=== PATIENT | female | born 1940 | race Caucasian/White ===

== ENCOUNTER 2016-04-30 18:24 | Observation (INO) | payer MEDICARE, OTHER ==
[~2016-04-30] VITALS: Ht 162.6 cm; Wt 90.9 kg
[~2016-04-30 18:24] MED LIST: ACID1TAB2 PO; AMIO200T PO; CETI10CA PO; CHOL5000 PO; DABI150C PO; ENAL10TA PO; FERR325C PO; FOLI0.8T PO; HYDR25TA4 PO; LEVO175T5 PO; MELA10TA2 PO; METO50TA3 PO; OMEG1CAP56 PO; PRA20 PO; PRAM0.252 PO; SENN-82 PO; SOLI10TA PO; VITA1CAP PO; [UNRECOGNIZED DRUG - CODE] PO; [UNRECOGNIZED DRUG - CODE] PO; [UNRECOGNIZED DRUG - OTHER] PO
[2016-04-30 18:31] VITALS: BP 149/92; PULSE 71; RESP 20; O2SAT 92
[2016-04-30 18:35] VITALS: BP 149/92; PULSE 71; RESP 20; O2SAT 92
--- NOTE | 2016-04-30 18:54 | ED.REPORT ---
HPI-Headache Date of Service Apr 30, 2016 ED Provider: Dr. Nirmal Gomez D.O. A 75 year old female with a medical history including atrial fibrillation on Eliquis, hypertension, and hydrocephalus s/p LP shunt placement presents to the ED accompanied by her family with a headache onset suddenly one hour prior to arrival. Associated symptoms include photophobia, nausea, trouble walking, mumbled speech, and confusion. The patient's reports that she was unaware of where she was, but recognized him. Her symptoms lasted more than an hour but have improved in the ED. The patient started taking oxybutynin five weeks ago and developed a rash on her chest 1.5 weeks ago. She was seen by her psych nurse today. Nursing Notes Stated Complaint: DISORIENTED,NAUSEA Chief Complaint: Headache Nursing Notes Reviewed: Yes Allergies: Coded Allergies: atorvastatin calcium (Verified Allergy, Severe, MYALGIA, 09/10/15) simvastatin (Verified Allergy, Severe, Muscle aches, 09/10/15) ezetimibe (Unverified Allergy, Mild, 09/10/15) LEG CRAMPS lisinopril (Unverified Allergy, Mild, 09/10/15) COUGH glucosamine (Unverified Adverse Reaction, Mild, 09/10/15) ARM PAINS atenolol (Unverified Adverse Reaction, Unknown, 09/10/15) WEAKNESS citalopram (Unverified Adverse Reaction, Unknown, 09/10/15) WT GAIN AND MALAISE Uncoded Allergies: TAPE (Allergy, Unknown, UNKNOWN, 09/30/12) Scheduled Acidophilus/Pectin, [place] (Acidophilus [place]) 1 Each Tablet 1 EACH PO DAILY Amiodarone (Amiodarone) 200 Mg Tablet 200 MG PO DAILY Apixaban (Eliquis) 5 Mg Tablet 5 MG PO BID Calcium Carbonate (Calcium) 600 Mg Tablet 600 MG PO DAILY Cholecalciferol (Vitamin D3) (Vitamin D3) 5,000 Unit Capsule 2,000 UNIT PO BID Cyanocobalamin (Vitamin B-12) (Vitamin B-12) 2,000 Mcg Tablet 2,000 MCG PO DAILY Fluoxetine (Fluoxetine) 40 Mg Capsule 40 MG PO DAILY Folic Acid (Folic Acid) 0.8 Mg Tablet 0.8 MG PO DAILY Levothyroxine (Levothyroxine) 175 Mcg Tablet 137 MCG PO DAILY Magnesium Oxide (Magnesium) 500 Mg Capsule 500 MG PO BID Melatonin (Melatonin) 10 Mg Tablet 20 MG PO HS Metoprolol Tartrate (Metoprolol Tartrate) 50 Mg Tablet 25 MG PO BID Multivits-Min/FA/Lycopene/Lut (Centrum Silver Tablet) 1 Each Tablet 1 EACH PO DAILY Oxybutynin Chloride (Oxybutynin Chloride) 5 Mg Tablet 2.5 MG PO BID Pravastatin (Pravachol) 20 Mg Tab 20 MG PO HS Ropinirole ER (Requip XL) 2 Mg Tablet.er 2 MG PO HS Tamsulosin (Flomax) 0.4 Mg Capsule 0.4 MG PO DAILY Ubidecarenone/Vit E Acetate (Co Q-10 100 mg Softgel) 1 Each Capsule 1 EACH PO DAILY Vit B Comp/C/FA/Iron/Vit E (Vitamin B Complex Tablet) 1 Each Tablet 1 EACH PO DAILY Vit C/Vit E/Lutein/Min/[place]-3 (Ocuvite Softgel) 1 Each Capsule 1 EACH PO HS Miscellaneous Medications Linaclotide (Linzess) 145 Mcg Capsule 145 MCG PO General Time Seen by MD: 18:54 Chief Complaint Headache Hx Obtained From: Patient, Spouse Arrived By: Walk-in Sudden in Onset?: Yes Onset Occurred: 1 - 4 hours ago Symptom Duration: Since onset Location: : Generalized Quality: Painful Severity: Current: Moderate Severity: Maximum: Moderate Associated with: Reports: Nausea, Denies: Fever Pertinent Negative: Relieved by nothing Related History: Reports: Hypertension, 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 Recent Healthcare: Recent doctor visit Similar Sx Previous: Yes Risk-Headache NIH Stroke Scale Level of Consciousness: Alert and responsive (0) Ask Month & Age: 0 questions right (2) Open/Close Eyes/Hand Oyster Farmer: Performs both tasks (0) Horizontal EO Movements: None (0) Facial Palsy: Normal symmetry (0) Right Arm Motor Drift (10s): No drift 10 sec (0) Left Arm Motor Drift (10s): No drift 10 sec (0) Right Leg Motor Drift (5s): No drift 5 sec (0) Left Leg Motor Drift (5s): No drift 5 sec (0) Limb Ataxia FNF/Heel-[place]: No ataxia (0) Sensation (Arms/Legs/Face): No sensory loss (0) Language Aphasia: No aphasia, normal (0) Dysarthria: No dysarthria, normal (0) Extinction/Inattention: No exctinct/inattent (0) NIHSS Score: 2 Time NIHSS Performed: 20:23 Date NIHSS Performed: Apr 30, 2016 Past Medical History Past Medical History Arthritis Hydrocephalus Reports: Hyperlipidemia, Hypertension Reports: Atrial fibrillation, Thyroid disease Past Surgical History LP shunt placement 2016 Reports: Appendectomy Reports: Pacemaker insertion Smoking History Former Smoker Social History Drug Use: Denies drug use Ambulatory Status Independent Review of Systems Constitutional: Denies: Fever Eyes: Reports: Photophobia GI: Reports: Nausea, Denies: Vomiting Skin: Reports Rash Neurologic: Reports: Confusion, Headache, Problem walking, Slurred speech ( "mumbled") Complete sys rev & neg: except as marked. Respiratory: Denies: Non-productive cough, Shortness of breath Physical Exam Initial Vital Signs Vital Signs (First) Date Time Temp Pulse Resp B/P Pulse Ox O2 Delivery O2 Flow Rate FiO2 04/30/16 18:31 71 20 149/92 92 Room Air 04/30/16 20:49 36.4 Initial VS: Reviewed Respiratory: Breath sounds normal, Clear to auscultation, No respiratory distress Cardiovascular: Regular rate & rhythm, Heart sounds normal Skin: Warm, Dry, No cyanosis Psychiatric: Mood/affect normal, Behavior normal, Normal thought content General/Constitutional: Awake, Alert Head / Eyes: Atraumatic, Normocephalic, EOMI Neck: Supple, Full range of motion Neurologic: Speech NL, No motor deficits, No sensory deficits Mental Status: Positive: Confused, Disoriented to time SEE NIH STROKE SCALE Interpretation & Diagnostics Lab Results Interpretation Result Diagram: 04/30/16 1925 05/01/16 0545 Test 04/30/16 19:25 04/30/16 20:07 04/30/16 20:08 White Blood Count 5.6th/mm3 (3.8-10.1) Red Blood Count 4.22mil/mm3 (3.90-5.20) Hemoglobin 12.1g/dL (12.0-15.6) Hematocrit 36.0% (35.0-46.0) Mean Corpuscular Volume 85.3fL (81-100) Mean Corpuscular Hemoglobin 28.7pg (27.0-35.0) Mean Corpuscular Hemoglobin Concent 33.6% (32.0-37.0) Red Cell Distribution Width 14.9% (12.3-15.4) Platelet Count 301bil/L (150-400) Neutrophils (%) (Auto) 51.2% (40-74) Lymphocytes (%) (Auto) 35.1% (14-46) Monocytes (%) (Auto) 11.0% (4-12) Eosinophils (%) (Auto) 2.0% (0-5) Basophils (%) (Auto) 0.5% (0-3) Prothrombin Time 10.0sec (8.1-12.5) Prothromb Time International Ratio 0.94ratio Hold [place] Top Tube Received (Received) Hold Urine Received (Received) Urine Color Yellow (YELLOW) Urine Appearance Clear (CLEAR,HAZY) Urine pH 7.5 (5.0-8.0) Urine Specific [place] 1.015 (1.003-1.035) Urine Protein Negativemg/dL (NEG,TRACE) Urine Glucose (UA) Negativemg/dL (NEGATIVE) Urine Ketones Negativemg/dL (NEGATIVE) Urine Occult Blood Trace (NEGATIVE) Urine Nitrite Negative (NEGATIVE) Urine Bilirubin Negative (NEGATIVE) Urine Urobilinogen Normalmg/dL (NORMAL) Urine Leukocyte Esterase Negative (NEGATIVE) Urine RBC 0-2/hpf (0-2) Urine WBC 0-5/hpf (0-5) Urine Epithelial Cells None/hpf (NONE-MOD) Urine Crystals None seen (NONE SEEN) Urine Bacteria Few/hpf (NONE-FEW) Urine Hyaline Casts None/lpf (NONE) Urine Granular Casts None seen (NONE SEEN) Urine Waxy Casts None seen (NONE SEEN) Urine Red Blood Cell Casts None seen (NONE SEEN) Urine White Blood Cell Casts None seen (NONE SEEN) Urine Mucus None seen (None Seen) Urine Trichomonas None seen (NONE SEEN) Urine Yeast None (NONE SEEN) Urinalysis Comment None Urine Culture Reflexed Not indicated CT Head Interpretation IMPRESSION: Source of current symptoms is not seen. Ventriculostomy catheter in stable normal position and there is no sign of hydrocephalus or over shunting. Dictated by: Nghia Greenberg M.D. on 04/30/2016 at 19:15 Study: Head CT no contrast Interpretation / Wet Read by: Interpret - Radiologist Re-Eval/Medical Decision Source of Hx: Old records Re-Evaluation/Progress : Time of Eval: 19:30 )( Patient Status: Condition improved Re-Evaluation/Progress Note: Discussed with patient CT and lab results, diagnosis, and plan for admit. Patient agrees with plan for care and all questions were addressed. Consultation : Referral / Consult Name: Myrna Rodriguez DO Consulted With: Hospitalist Call Returned at: 21:52 District Associate Judge: Agrees with eval, Agrees with plan, Accepts admit Counseled Regarding: Diagnosis, Lab results, Need for admission Discharge & Departure Impression: Primary Impression: Altered mental status Altered mental status type: transient alteration of awareness Qualified Code : R40.4 - Transient alteration of awareness Additional Impressions: TIA (transient ischemic attack) Transient cerebral ischemia type: unspecified Qualified Code: G45.9 - Transient cerebral ischemic attack, unspecified Headache Headache type: unspecified Headache chronicity pattern: acute headache Intractability: not intractable Qualified Code: R51 - Headache Disposition: ADMITTED TO HOSPITAL Discharge Condition All VS Reviewed: Yes Condition: Stable Referrals: Jose Larson MD (PCP) Zeenat Attestation Portions of this note were transcribed by Diamond Hidalgo. I, Dr. Gomez, personally performed the history, physical exam, and medical decision-making; I reviewed and confirmed the accuracy of the information in the transcribed note. Signed by: Zeenat Thompson, 04/30/2016, 22:10 copies to: Jose Larson MD, Todd P DO Apr 30, 2016 18:54 DIAMOND HIDALGO Apr 30, 2016 19:26 None seen (NONE SEEN) Urine Mucus None seen (None Seen) Urine Trichomonas None seen (NONE SEEN) Urine Yeast None (NONE SEEN) Urinalysis Comment None Urine Culture Reflexed Not indicated CT Head Interpretation
--- NOTE | 2016-04-30 19:17 | DRSVH ---
PROCEDURE: CT BRAIN WITHOUT CONTRAST ([id number]) INDICATIONS: headache, vomiting, shunt patient, hx hydrocephalu TECHNIQUE: Noncontrast 4.5 mm thick angled axial sections acquired from the foramen magnum to the vertex, with c oronal reformats. COMPARISON: None. FINDINGS: Image quality: Excellent. CSF spaces: Basal cisterns are patent. No extra-axial fluid collections. The ventricles are symmet david in size and shape. Brain: No intracranial bleeds or masses. There is cerebral volume loss for age, with resultant vent ricular and sulcal prominence. There are periventricular and deep white matter chronic small vessel ischemic changes. There is intracranial internal carotid artery atherosclerosis. Ventriculostomy ca theter is in stable normal position from right sided approach Skull and face: Calvarium and visualized facial bones appear intact, without suspicious lesions. Sinuses: Visualized sinuses and mastoids are clear. IMPRESSION: Source of current symptoms is not seen. Ventriculostomy catheter in stable normal posit ion and there is no sign of hydrocephalus or over shunting. Dictated by: Nghia Greenberg M.D. on 04/30/2016 at 19:15 Approved by: Nghia Greenberg M.D. on 04/30/2016 at 19:16
[2016-04-30 19:38] LABS: BASOPHILS % (AUTO) 0.5 % (0-3); Mean Corpuscular Hemoglobin 28.7 pg (27.0-35.0); Mean Corpuscular Volume 85.3 fL (81-100); NEUTROPHILS % (AUTO) 51.2 % (40-74); Platelet Count 301 bil/L (150-400)
[2016-04-30 20:01] LABS: INR 0.94 ratio
[2016-04-30 20:21] LABS: APPEARANCE,URINE CLEAR (CLEAR,HAZY); COLOR,URINE YELLOW (YELLOW); OCCULT BLOOD,URINE TRACE (NEGATIVE); PH,URINE 7.5 (5.0-8.0); UROBILINOGEN,URINE NORMAL (NORMAL)
[2016-04-30] MEDS ORDERED: Ondansetron 2 mg/mL 2 mL Inj IVPUSH PRN (20:40)
[2016-04-30] MEDS ORDERED: Acetaminophen IV 1,000 MG in IV Premix 1 EACH IV ONE (20:40)
[2016-04-30 20:49] VITALS: BP 135/85; PULSE 71; RESP 16; O2SAT 94
[2016-04-30 21:53] VITALS: BP 155/91; PULSE 70; RESP 18; O2SAT 98
[2016-04-30] MEDS ORDERED: Polyethylene Glycol (PEG) 17 Gm Powder PO PRN ×2 (21:55→23:10)
[2016-04-30] MEDS ORDERED: Alum-Mag Hydrox-Simeth 30 mL Suspension PO PRN ×2 (21:55→23:10)
[2016-04-30] MEDS ORDERED: Ondansetron 2 mg/mL 2 mL Inj IV PRN ×2 (21:55→23:10)
[2016-04-30 22:07] VITALS: PULSE 70
[2016-05-01 01:16] VITALS: BP 121/78; PULSE 71; RESP 18; O2SAT 97
--- NOTE | 2016-05-01 01:45 | NUR ---
Admit: Pt arrived to room 3027 around 2145 from ED via stretcher, ambulated self to scale and bed; family at bedside. AOx3, FORBES, IV Tylenol infusing upon arrival. Vitals stable, RA, tele placed. Pt denies pain, chest pain and SOB, no neuro deficits noted. Med req not completed at this time, family provided list, RN will attempt to enter this night and alert MD when complete.
--- NOTE | 2016-05-01 01:46 | PCM.HPMED ---
Subjective Date of Service Apr 30, 2016 Primary Provider: Admitting Physician: Myrna Rodriguez DO Primary Care Physician: Mohsen Schmidtton Attending Physician: Myrna Rodriguez DO Chief Complaint: Headache, nausea, unsteadiness History of Present Illness: Patient is a pleasant 75-year-old female with NPH s/p PSYCHIATRIC NURSE shunt, paroxysmal atrial fibrillation on Eliquis, tachy-scout syndrome s/p PPM, hypertension, hypothyroidism presenting with nausea, headache and unsteadiness. Patient is a poor historian and is accompanied at bedside by her daughter at time of visit who is filling in the gaps of the history. The patient had an appointment with her junior accountant bookkeeper, Dr. Sol, earlier today with subsequent blood work. She reports having lunch and visiting the pharmacy afterwards with the onset of nausea at about 16:00. When she got home, her noted the patient had some "unsteadiness" and difficulty getting out of their car. The patient reports memory issues at baseline but reports she did not know where she was while at home. Her gave her a piece of candy and some water with no improvement after 20 minutes with her symptoms, which prompted him to bring her to [facility] ED for further evaluation. While in the ED, the patient experienced a terrible headache with photophobia. The pain of her headache was located in the temporal and parietal area with more pain on the left side. She reports having issues with migraines in the past that seemed to resolve with magnesium supplementation. CT brain in the ED shows stable ventriculostomy catheter without sign of hydrocephalus or over shunting. The patient received acetaminophen 1g IV. At time of visit, the patient reports some improvement with her nausea and pain, though not fully resolved. Her daughter reports that the patient's mentation is back at baseline. The patient reports associated lightheadedness but otherwise denies acute visual changes, dizziness, emesis, shortness of breath, palpitations, chest pain. She is followed by Dr. Mahamed Banegas at [facility] Neurology. In the ED, vitals: temp 36.4, HR 71, RR 20 satting 92% on room air, BP 142/92. Notable labs: creatinine 1.05, AST 75, ALT 81 Review of Systems: A comprehensive review of systems was conducted with the patient and found to be negative except as above in the History of Present Illness. Allergies Coded Allergies: atorvastatin calcium (Verified Allergy, Severe, MYALGIA, 09/10/15) simvastatin (Verified Allergy, Severe, Muscle aches, 09/10/15) ezetimibe (Unverified Allergy, Mild, 09/10/15) LEG CRAMPS lisinopril (Unverified Allergy, Mild, 09/10/15) COUGH glucosamine (Unverified Adverse Reaction, Mild, 09/10/15) ARM PAINS atenolol (Unverified Adverse Reaction, Unknown, 09/10/15) WEAKNESS citalopram (Unverified Adverse Reaction, Unknown, 09/10/15) WT GAIN AND MALAISE Uncoded Allergies: TAPE (Allergy, Unknown, UNKNOWN, 09/30/12) Home Medications Fluoxetine 40mg daily Amiodarone 200mg daily Levothyroxine 137mcg daily Metoprolol 25mg BID Eliquis 5mg BID Oxybutynin 2.5mg BID Pravastatin 20mg QHS Ropinirole 2mg QHS Linzess 145mcg Vitamin D3 2000IU BID Folate 800mcg daily Other supplements: CoQ10 Vitamin B complex Vitamin B12 Ocuvite Melatonin Acidophilus Centrum silver Magnesium Calcium PMH Normal pressure hydrocephalus 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 External ears without defect. Pupils equal, round, and reactive to light and accommodation. Anicteric sclerae, moist conjunctivae, and no lid lag. Oropharynx free of erythema and cobble stoning with moist mucosa. Neck: Supple. No lymphadenopathy or thyromegaly. Cardiovascular: Regular rate with occasional ectopy, no murmurs, rubs, or gallops appreciated Pulmonary: Clear to auscultation bilaterally with no crackles, wheezes, or rhonchi. Normal respiratory effort with no use of accessory muscles. Abdomen: Bowel tones present. Soft, nontender, nondistended. Extremities: No clubbing, cyanosis, edema, or lymphadenopathy appreciated. Right pretibial area with little skin tear. Left knee with well-healed surgical incision. Skin: Normal temperature, turgor, and texture. Chest with erythema. No ulcers, or subcutaneous nodules appreciated. Neurological: Cranial nerves grossly intact. Upper and lower motor strength 5/ 5. Sensation in upper and lower extremities intact and equal bilaterally. Able to perform [id number] and [id number]. Negative Romberg. Able to stand without difficulty. Psychiatric: Normal mood and affect. Alert and oriented to person, place and month. Lab and Diagnostics Result Diagram: 04/30/16192404/30/161924 X-Rays, CTs and MRIs Date of Service: 04/30/16 185 PROCEDURE: CT BRAIN WITHOUT CONTRAST ([id number]) INDICATIONS: headache, vomiting, shunt patient, hx hydrocephalu TECHNIQUE: Noncontrast 4.5 mm thick angled axial sections acquired from the foramen magnum to the vertex, with coronal reformats. COMPARISON: None. FINDINGS: Image quality: Excellent. CSF spaces: Basal cisterns are patent. No extra-axial fluid collections. The ventricles are symmetric in size and shape. Brain: No intracranial bleeds or masses. There is cerebral volume loss for age , with resultant ventricular and sulcal prominence. There are periventricular and deep white matter chronic small vessel ischemic changes. There is intracranial internal carotid artery atherosclerosis. Ventriculostomy catheter is in stable normal position from right sided approach Skull and face: Calvarium and visualized facial bones appear intact, without suspicious lesions. Sinuses: Visualized sinuses and mastoids are clear. IMPRESSION: Source of current symptoms is not seen. Ventriculostomy catheter in stable normal position and there is no sign of hydrocephalus or over shunting. Dictated by: Nghia Greenberg M.D. on 04/30/2016 at 19:15 Approved by: Nghia rGeenberg M.D. on 04/30/2016 at 19:16 Assessment & Plan Patient is a pleasant 75-year-old female with NPH s/p PSYCHIATRIC NURSE shunt, paroxysmal atrial fibrillation on Eliquis, tachy-scout syndrome s/p PPM, hypertension, hypothyroidism presenting with nausea, headache and unsteadiness and admitted for altered mental status. 1. Acute altered mental status. Present on admission. Resolved -Etiology possibly TIA or migraine headache -CT head reads: ventriculostomy catheter in stable normal position and there is no sign of hydrocephalus or over shunting -Neuro checks Q4 hours -Patient has a PSYCHIATRIC NURSE shunt that is adjusted magnetically, thus brain MRI not ordered. Will likely need to contact patient's neurologist for recommendations -Echo with bubble study -Tylenol PRN headache 2. Acute kidney injury. Present on admission. Active -Creatinine 1.05 -Possibly chronic component, outpatient record show creatinine 1.05 in 08/2015 but normal before that time -Avoid nephrotoxins -Follow with CMP 3. Transaminitis, acute. Present on admission. Active -Possibly medication-induced as patient reports occasional Tylenol use -Follow with CMP 4. Chest rash, subacute. Present on admission. Active -Mild erythematous v-rash on chest present for about 2 weeks -Presumed secondary to oxybutynin use. Started medication about 5 weeks ago with onset of rash about 2 weeks ago -Consider trial of antihistamine 5. Normal pressure hydrocephalus s/p PSYCHIATRIC NURSE shunt. Chronic. Present on admission. Stable -CT shows ventriculostomy catheter in stable normal position and there is no sign of hydrocephalus or over shunting 6. Hypothyroidism, chronic. Present on admission -Continue home dose levothyroxine 137mcg 7. Paroxysmal atrial fibrillation. chronic. Present on admission -Continue metoprolol, amiodarone, Eliquis 8. Hypertension, chronic. Present on admission -Continue metoprolol 9. Hypercholesterolemia, chronic. Present on admission -Continue home statin 10. Bladder dysfunction with frequent urination -Continue oxybutynin 11. Restless leg syndrome -Continue ropinirole Patient Status: Patient is admitted under observation status with expected length of stay less than 2 midnights due to severity of presenting symptoms, risk of adverse event, and complexity of treatment plan. VTE Prophylaxis: Other (On Eliquis) Resuscitation Status: DNR/DNI:Do Not Resuscitate/Intubate Attending Statement The patient was seen and examined together with house staff on 05/01/2016 and I agree with the history, exam and plan as outlined in the note above. Sebastian Acevedo DO Apr 30, 2016 23:41 Myrna Rodriguez DO May 01, 2016 02:59
[2016-05-01 05:03] VITALS: BP 131/74; PULSE 72; RESP 18; O2SAT 96
--- NOTE | 2016-05-01 05:33 | NUR ---
Uneventful Night: Pt had an uneventful night, no c/o pain, chest pain or SOB, neuros intact. Pt slept most of the night, pleasant and cooperative with care.
[2016-05-01] MEDS ORDERED: FLUO40CA PO (06:36)
[2016-05-01] MEDS ORDERED: PRAV20TA2 PO (06:36)
[2016-05-01] MEDS ORDERED: TAMS0.4C98 PO (06:38)
[2016-05-01] MEDS ORDERED: LINA145C PO (06:38)
[2016-05-01] MEDS ORDERED: OXYB5TAB10 PO (09:04)
[2016-05-01] MEDS ORDERED: [UNRECOGNIZED DRUG - CODE] PO (09:04)
[2016-05-01] MEDS ORDERED: MULT-1073 PO (09:04)
[2016-05-01] MEDS ORDERED: CALC600T12 PO (09:04)
[2016-05-01] MEDS ORDERED: UBID1CAP52 PO (09:04)
[2016-05-01] MEDS ORDERED: APIX5TAB PO (09:04)
[2016-05-01] MEDS ORDERED: MAGN500C4 PO (09:04)
[2016-05-01] MEDS ORDERED: VIT1CAPS8 PO (09:04)
[2016-05-01] MEDS ORDERED: VIT1TABL83 PO (09:05)
[2016-05-01 10:36] VITALS: BP 136/82; PULSE 72; RESP 16; O2SAT 95
[2016-05-01 11:24] VITALS: PULSE 65
--- NOTE | 2016-05-01 14:25 | NUR ---
Case Management: MCGINNIS explained. Patient signed and copy given. Signed copy in chart. [email or web address]>
--- NOTE | 2016-05-01 15:38 | DRSVH ---
[facility] [address] [place] [address] Echocardiogram Report Name: JUICE DUNN NStudy Date: 05/01/2016 Height: 64 in Hospital Exam Location: [facility] Weight: 200 lb Gender: Female BSA: 2.0 m2 : 1940 Age: 75 yrs BP: 131/74 mmHg Reason For Study: TIA Ordering Physician: Performed By: Ben Mercado Interpretation Summary Normal left ventricle size with ejection fraction 60-65%. Mild biatrial enlargement. Mild mitral annular calcification. There is a pacemaker lead in the right ventricle. Moderate tricuspid regurgitation. The right ventricular systolic pressure is estimated at 37 mmHg assuming a right atrial pressure of 3 mm Hg. Mildly enlarged ascending aorta. Comparison is made with the echocardiogram of 03/08/10, pacemaker lead is new and tricuspid regurgitation has worsen. Procedure: A two-dimensional transthoracic echocardiogram with color flow and Doppler was performed in limited views only. The study quality was technically good. Comparison is made with the echocardiogram of 03/08/10. A saline contrast injection was performed to assess for cardiac shunting. The patient was in normal sinus rhythm during the exam. Left Ventricle: The left ventricle is normal in size. There is normal left ventricular wall thickness. The ejection fraction is estimated to be 60-65%. There are no focal wall motion abnormalities. Spectral Doppler of the mitral valve shows a normal E/A wave ratio. Right Ventricle: The right ventricle is normal in size and function. There is a pacemaker lead in the right ventricle. Atria: There is mild biatrial enlargement. Injection of contrast documented no interatrial shunt. Mitral Valve: There is mild mitral annular calcification. There is trace mitral regurgitation. Aortic Valve: The aortic valve is trileaflet. The aortic valve opens well. There is trace aortic regurgitation. Tricuspid Valve: The tricuspid valve is normal in structure and function. There is moderate tricuspid regurgitation. The right ventricular systolic pressure is estimated at 37 mmHg assuming a right atrial pressure of 3 mm Hg. Pulmonic Valve: The pulmonic valve is not well visualized. Great Vessels: The ascending aorta is mildly enlarged. The IVC is of normal diameter and collapses greater than 50% with a sniff. This suggests a low right atrial pressure of 3 mm Hg. Pericardium/ Pleura There is no pericardial effusion. MMode/2D Measurements & Calculations LVIDd: 5.4 cm RA long axis asc Aorta LVIDs: 3.2 cm LA A2 area: 23.2 cm Diam: 3.9 cm FS: 39.9 % LA A4 area: 25.6 cm RA area IVSd: 0.83 cm LA length (vol): 7.4 cm LVPWd: 0.85 cm LA vol: 67.9 ml : 23.3 cm LA vol index RA vol: 75.5 ml RA : 38.6 mm2 IVC diam: 1.4 cm LV mosqueda. diameter/BSA LV sys. diameter/BSA (cm/m^2): 2.7 (cm/m^2): 1.6 Doppler Measurements & Calculations Ao V2 max MV E max tashi MV E/A: 1.5 TR max tashi : 126.2 cm/sec : 96.3 cm/sec Med Peak E' Tashi : 289.7 cm/sec Ao max PG MV A max tashi TR max PG : 6.4 mmHg : 63.7 cm/sec E/E' med: 17.0 : 33.6 mmHg Ao mean PG MV A dur: 0.15 sec : 3.5 mmHg MV dec time Ao V2 mean : 0.15 sec : 90.8 cm/sec Ao V2 VTI: 28.9 cm Electronically signed by: Zunilda Vergara on Reading Physician:05/01/2016 03:37 PM
[2016-05-01 15:39] VITALS: BP 128/84; PULSE 71; RESP 18; O2SAT 95
--- NOTE | 2016-05-01 16:33 | PCM.DIMED ---
Discharge Instructions Date of Service May 01, 2016 Dates of Hospitalization Apr 30, 2016 at 21:00 Discharge Diagnosis Discharge Diagnosis 1. Acute altered mental status and transient memory deficit. Present on admission. Resolved - Unclear exact etiology but possibly TIA or migraine headache 2. Mild acute kidney injury. Present on admission. Likely due to dehydration. Improved 3. Transaminitis, acute. Present on admission. Improving - Possibly medication-induced - Recommend followup with primary care provide to ensure resolution 4.History of hypothyroidism - Low TSH (0.21) - Recommend followup with primary care provider for consideration of further adjustment of medication 5. 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 Chronic. Present on admission. Stable - CT shows ventriculostomy catheter in stable normal position and there is no sign of hydrocephalus or over shunting 6. Paroxysmal atrial fibrillation. chronic. Present on admission. stable. 7. Hypertension, chronic. stable 8. Hypercholesterolemia, chronic. 9. Bladder dysfunction with frequent urination. stable 10. Restless leg syndrome. stable Diet Low fat, Low Sodium, Heart Healthy Activity No restrictions Call your provider Fever or Chills, Shortness of breath, Chest pain, Vomitting, Excessive diarrhea , Weakness (unilateral) Patient Instructions Seek immediate medical attention if any new or worsening signs or symptoms occur Follow-up plan 1. Followup with primary care provider in 2-7 days to followup on liver enzymes and thyroid level 2. Followup with your neurosurgeon (Dr. Banegas) in 4-6 weeks Follow-up Provider: [facility] Pablo Gottlieb May 01, 2016 16:33
--- NOTE | 2016-05-01 16:34 | NUR ---
Social Work:initial assessment/discharge: Data:See initial assessment. Pt is a 75 y/o female who was admitted on 04/30/16 fopr AMS per H&P. Pt is medically stable for discharge. GERRY met with pt and family at bedside to discuss discharge planning, SW role explained. Pt resides at home with her where she remains independent with ADLS. Pt does not drive and does not use any DME. Pt has no HH or SNF history. No ad terminal makeup operator care or VA benefits. SW discussed DPOA/ advanced directive, this has been completed, SW encouraged a copy to be brought in. Pt's family supportive. Pt has been up independent in the hallways with daughter. No discharge needs identified. All updated and agreeable to plan. Assessment:Pt who is independent at baseline. Plan:Pt to discharge home today via POV. No discharge needs identified. All updated and agreeable to plan. LAZARO High Addendum: 05/01/16 at 1637 by LUCA BUSH Amended: Links added.
--- NOTE | 2016-05-01 17:30 | NUR ---
Discharge Pt discharged home with at 1723, walking out to the car with primary RN. Pt denied having pain. IV d/c prior to leaving. All personal belongings left with pt. Discharge info discussed with pt, pts and daughter. ALL questions answered. VSS.
--- NOTE | 2016-05-01 17:31 | PCM.DC.MED ---
Discharge Summary Date of Service May 01, 2016 Dates of Hospitalization Date of Hospital Admission Apr 30, 2016 at 21:00 Date of Discharge: May 01, 2016 Providers: Admitting Physician: Myrna Rodriguez DO [facility] Attending Physician: Myrna Rodriguez DO Diagnosis at Time of Discharge Diagnosis at Time of Discharge 1. Acute altered mental status and transient memory deficit. Present on admission. Resolved - Unclear exact etiology but possibly TIA or migraine headache 2. Mild acute kidney injury. Present on admission. Likely due to dehydration. Improved 3. Transaminitis, acute. Present on admission. Improving - Possibly medication-induced - Recommend followup with primary care provide to ensure resolution 4.History of hypothyroidism - Low TSH (0.21) - Recommend followup with primary care provider for consideration of further adjustment of medication 5. Normal pressure hydrocephalus s/p HR INTERNSHIP shunt. Chronic. Present on admission. Stable - CT shows ventriculostomy catheter in stable normal position and there is no sign of hydrocephalus or over shunting 6. Paroxysmal atrial fibrillation. chronic. Present on admission. stable. 7. Hypertension, chronic. stable 8. Hypercholesterolemia, chronic. 9. Bladder dysfunction with frequent urination. stable 10. Restless leg syndrome. stable Procedures XRay, CTs & MRIs Date of Service: 04/30/16 1852 PROCEDURE: CT BRAIN WITHOUT CONTRAST ([id number]) INDICATIONS: headache, vomiting, shunt patient, hx hydrocephalu TECHNIQUE: Noncontrast 4.5 mm thick angled axial sections acquired from the foramen magnum to the vertex, with coronal reformats. COMPARISON: None. FINDINGS: Image quality: Excellent. CSF spaces: Basal cisterns are patent. No extra-axial fluid collections. The ventricles are symmetric in size and shape. Brain: No intracranial bleeds or masses. There is cerebral volume loss for age , with resultant ventricular and sulcal prominence. There are periventricular and deep white matter chronic small vessel ischemic changes. There is intracranial internal carotid artery atherosclerosis. Ventriculostomy catheter is in stable normal position from right sided approach Skull and face: Calvarium and visualized facial bones appear intact, without suspicious lesions. Sinuses: Visualized sinuses and mastoids are clear. IMPRESSION: Source of current symptoms is not seen. Ventriculostomy catheter in stable normal position and there is no sign of hydrocephalus or over shunting. Dictated by: Nghia Greenberg M.D. on 04/30/2016 at 19:15 Approved by: Nghia Greenberg M.D. on 04/30/2016 at 19:16 Cardiac Echo Impression Date of Service: 05/01/16 6827 Echocardiogram Report Interpretation Summary Normal left ventricle size with ejection fraction 60-65%. Mild biatrial enlargement. Mild mitral annular calcification. There is a pacemaker lead in the right ventricle. Moderate tricuspid regurgitation. The right ventricular systolic pressure is estimated at 37 mmHg assuming a right atrial pressure of 3 mm Hg. Mildly enlarged ascending aorta. Comparison is made with the echocardiogram of 03/08/10, pacemaker lead is new and tricuspid regurgitation has worsen. Electronically signed by: Zunilda Vergara on Reading Physician:05/01/2016 03:37 PM Brief History As noted in H&P by Dr. Acevedo: Patient is a pleasant 75-year-old female with NPH s/p HR INTERNSHIP shunt, paroxysmal atrial fibrillation on Eliquis, tachy-scout syndrome s/p PPM, hypertension, hypothyroidism presenting with nausea, headache and unsteadiness. Patient is a poor historian and is accompanied at bedside by her daughter at time of visit who is filling in the gaps of the history. The patient had an appointment with her scrap carrier, Dr. Sol, earlier today with subsequent blood work. She reports having lunch and visiting the pharmacy afterwards with the onset of nausea at about 16:00. When she got home, her noted the patient had some "unsteadiness" and difficulty getting out of their car. The patient reports memory issues at baseline but reports she did not know where she was while at home. Her gave her a piece of candy and some water with no improvement after 20 minutes with her symptoms, which prompted him to bring her to [facility] ED for further evaluation. While in the ED, the patient experienced a terrible headache with photophobia. The pain of her headache was located in the temporal and parietal area with more pain on the left side. She reports having issues with migraines in the past that seemed to resolve with magnesium supplementation. CT brain in the ED shows stable ventriculostomy catheter without sign of hydrocephalus or over shunting. The patient received acetaminophen 1g IV. At time of visit, the patient reports some improvement with her nausea and pain, though not fully resolved. Her daughter reports that the patient's mentation is back at baseline. The patient reports associated lightheadedness but otherwise denies acute visual changes, dizziness, emesis, shortness of breath, palpitations, chest pain. Hospital Course 1. Acute altered mental status. Present on admission. Resolved -Etiology possibly TIA or migraine headache vs medication side effect (namely, oxybutynin) -CT head reads: ventriculostomy catheter in stable normal position and there is no sign of hydrocephalus or over shunting -Echo with bubble study unremarkable as noted above -Neuro exam by time of discharge is non-focal. -patient with significant memory deficit earlier this morning but by afternoon mental status is back to baseline with her and daughter reporting mental status back to baseline -discussed her case with her neurosurgeon (Dr. Blake at ) who reviewed her CT and agrees with supportive care and f/u in 4-6 weeks as outpatient. 2. Mild Acute kidney injury. Present on admission. -almost resolved with IVF -Creatinine 1.01 by day of d/c -Possibly chronic component, outpatient record show creatinine 1.05 in 08/2015 but normal before that time 3. Transaminitis, acute. Present on admission. Improving -Possibly medication-induced as patient reports occasional Tylenol use -Follow with PCP 4. Chest rash, subacute. Present on admission. Improved -Mild erythematous -Presumed secondary to oxybutynin use. Started medication about 5 weeks ago with onset of rash about 2 weeks ago -Consider stopping. will defer to PCP 5. Normal pressure hydrocephalus s/p HR INTERNSHIP shunt. Chronic. Present on admission. Stable -CT shows ventriculostomy catheter in stable normal position and there is no sign of hydrocephalus or over shunting - plan as noted above 6. Hypothyroidism, chronic. Present on admission -Continue home dose levothyroxine 137mcg - TSH is low. -further f/u w/ PCP 7. Paroxysmal atrial fibrillation. chronic. Present on admission -Continue metoprolol, amiodarone, Eliquis 8. Hypertension, chronic. Present on admission -Continue metoprolol 9. Hypercholesterolemia, chronic. Present on admission -Continue home statin 10. Bladder dysfunction with frequent urination. stable 11. Restless leg syndrome -Continue ropinirole by time of d/c lungs CTA bilat. neuro exam non-focal. Exam Vital Signs (Last) Date Time Temp Pulse Resp B/P Pulse Ox O2 Delivery O2 Flow Rate FiO2 05/01/16 15:39 36.7 71 18 128/84 95 Room Air Test 04/30/16 19:25 04/30/16 20:07 04/30/16 20:08 05/01/16 05:45 White Blood Count 5.6th/mm3 (3.8-10.1) Red Blood Count 4.22mil/mm3 (3.90-5.20) Hemoglobin 12.1g/dL (12.0-15.6) Hematocrit 36.0% (35.0-46.0) Mean Corpuscular Volume 85.3fL (81-100) Mean Corpuscular Hemoglobin 28.7pg (27.0-35.0) Mean Corpuscular Hemoglobin Concent 33.6% (32.0-37.0) Red Cell Distribution Width 14.9% (12.3-15.4) Platelet Count 301bil/L (150-400) Neutrophils (%) (Auto) 51.2% (40-74) Lymphocytes (%) (Auto) 35.1% (14-46) Monocytes (%) (Auto) 11.0% (4-12) Eosinophils (%) (Auto) 2.0% (0-5) Basophils (%) (Auto) 0.5% (0-3) Prothrombin Time 10.0sec (8.1-12.5) Prothromb Time International Ratio 0.94ratio Hold [place] Top Tube Received (Received) Hold Urine Received (Received) Urine Color Yellow (YELLOW) Urine Appearance Clear (CLEAR,HAZY) Urine pH 7.5 (5.0-8.0) Urine Specific [place] 1.015 (1.003-1.035) Urine Protein Negativemg/dL (NEG,TRACE) Urine Glucose (UA) Negativemg/dL (NEGATIVE) Urine Ketones Negativemg/dL (NEGATIVE) Urine Occult Blood Trace (NEGATIVE) Urine Nitrite Negative (NEGATIVE) Urine Bilirubin Negative (NEGATIVE) Urine Urobilinogen Normalmg/dL (NORMAL) Urine Leukocyte Esterase Negative (NEGATIVE) Urine RBC 0-2/hpf (0-2) Urine WBC 0-5/hpf (0-5) Urine Epithelial Cells None/hpf (NONE-MOD) Urine Crystals None seen (NONE SEEN) Urine Bacteria Few/hpf (NONE-FEW) Urine Hyaline Casts None/lpf (NONE) Urine Granular Casts None seen (NONE SEEN) Urine Waxy Casts None seen (NONE SEEN) Urine Red Blood Cell Casts None seen (NONE SEEN) Urine White Blood Cell Casts None seen (NONE SEEN) Urine Mucus None seen (None Seen) Urine Trichomonas None seen (NONE SEEN) Urine Yeast None (NONE SEEN) Urinalysis Comment None Urine Culture Reflexed Not indicated Sodium Level 142mEq/L (134-144) Potassium Level 4.6mEq/L (3.5-5.2) Chloride Level 104mEq/L (97-108) Carbon Dioxide Level 27mmol/L (18-29) Blood Urea Nitrogen 11mg/dL (8-27) Creatinine 1.01mg/dL (0.57-1.00) Estimat Glomerular Filtration Rate 77mL/min (>59) Glucose Level 84mg/dL (60-99) Calcium Level 9.1mg/dL (8.5-10.1) Total Bilirubin 0.3mg/dL (0.0-1.2) Aspartate Amino Transf (AST/SGOT) 66U/L (0-50) Alanine Aminotransferase (ALT/SGPT) 71U/L (0-32) Alkaline Phosphatase 70U/L (25-165) Total Protein 5.8g/dL (6.4-8.4) Albumin 3.7g/dL (3.4-5.0) Triglycerides Level 59mg/dL (0-149) Cholesterol Level 222mg/dL (100-199) LDL Cholesterol, Calculated 115.200mg/dL (0-99) VLDL Cholesterol 11.800mg/dL HDL Cholesterol 95mg/dL (>39) Cholesterol/HDL Ratio 2.34 (0.0-4.4) Thyroid Stimulating Hormone (TSH) 0.201uIU/mL (0.450-4.500) Discharge Medications Discharge Medications Acidophilus/Pectin, [place] (Acidophilus Caplet) 1 Each Tablet 1 EACH PO DAILY ( Reported) Amiodarone (Amiodarone) 200 Mg Tablet 200 MG PO DAILY (Reported) Apixaban (Eliquis) 5 Mg Tablet 5 MG PO BID (Reported) Calcium Carbonate (Calcium) 600 Mg Tablet 600 MG PO DAILY (Reported) Cholecalciferol (Vitamin D3) (Vitamin D3) 5,000 Unit Capsule 2,000 UNIT PO BID ( Reported) Cyanocobalamin (Vitamin B-12) (Vitamin B-12) 2,000 Mcg Tablet 2,000 MCG PO DAILY (Reported) Fluoxetine (Fluoxetine) 40 Mg Capsule 40 MG PO DAILY (Reported) Folic Acid (Folic Acid) 0.8 Mg Tablet 0.8 MG PO DAILY (Reported) Levothyroxine (Levothyroxine) 175 Mcg Tablet 137 MCG PO DAILY (Reported) Magnesium Oxide (Magnesium) 500 Mg Capsule 500 MG PO BID (Reported) Melatonin (Melatonin) 10 Mg Tablet 20 MG PO HS (Reported) Metoprolol Tartrate (Metoprolol Tartrate) 50 Mg Tablet 25 MG PO BID (Reported) Multivits-Min/FA/Lycopene/Lut (Centrum Silver Tablet) 1 Each Tablet 1 EACH PO DAILY (Reported) Oxybutynin Chloride (Oxybutynin Chloride) 5 Mg Tablet 2.5 MG PO BID (Reported) Pravastatin (Pravachol) 20 Mg Tab 20 MG PO HS (Reported) Ropinirole ER (Requip XL) 2 Mg Tablet.er 2 MG PO HS (Reported) Tamsulosin (Flomax) 0.4 Mg Capsule 0.4 MG PO DAILY (Reported) Ubidecarenone/Vit E Acetate (Co Q-10 100 mg Softgel) 1 Each Capsule 1 EACH PO DAILY (Reported) Vit B Comp/C/FA/Iron/Vit E (Vitamin B Complex Tablet) 1 Each Tablet 1 EACH PO DAILY (Reported) Vit C/Vit E/Lutein/Min/[place]-3 (Ocuvite Softgel) 1 Each Capsule 1 EACH PO HS ( Reported) Miscellaneous Medications Linaclotide (Linzess) 145 Mcg Capsule 145 MCG PO (Reported) Followup Plan Disposition: Home Follow-up plan 1. Followup with primary care provider in 2-7 days to followup on liver enzymes and thyroid level 2. Followup with your neurosurgeon (Dr. Banegas) in 4-6 weeks Discharge Diet: Low fat, Low Sodium, Heart Healthy Discharge Activity: No restrictions Patient Instructions Seek immediate medical attention if any new or worsening signs or symptoms occur [facility] Time spent 45 min copies to: [facility] Pablo Gottlieb May 01, 2016 17:31
== END 2016-05-01 18:10 | disposition home or self-care (01) ==
LOC: SED 18:24 → MPC 21:00
PROVIDERS: ADMIT Internal Medicine; ATTEND Internal Medicine
DX: R41.82 Altered mental status, unspecified (principal); N17.9 Acute kidney failure, unspecified; R74.0 Nonspecific elevation of levels of transaminase and lactic acid dehydrogenase [LDH]; E03.9 Hypothyroidism, unspecified; I48.0 Paroxysmal atrial fibrillation; I10 Essential (primary) hypertension; E78.00 Pure hypercholesterolemia, unspecified; N31.8 Other neuromuscular dysfunction of bladder; R35.0 Frequency of micturition; G25.81 Restless legs syndrome; R21 Rash and other nonspecific skin eruption; R00.0 Tachycardia, unspecified; G91.2 (Idiopathic) normal pressure hydrocephalus; J30.9 Allergic rhinitis, unspecified; M54.5 Low back pain; G43.909 Migraine, unspecified, not intractable, without status migrainosus; Z87.891 Personal history of nicotine dependence; Z79.01 Long term (current) use of anticoagulants; Z95.0 Presence of cardiac pacemaker; Z98.2 Presence of cerebrospinal fluid drainage device; Z96.652 Presence of left artificial knee joint; Z66 Do not resuscitate
CPT/HCPCS: 36415; 70450; 80053; 80061; 81000; 84443; 85025; 85610; 96374; 96375; 99285; C8924; G0378; J0131; J2405